=== PATIENT | female | born 1975 | race African-American/Black ===

== ENCOUNTER 2021-09-18 19:35 | Emergency (ER) | payer OTHER ==
[~2021-09-18] VITALS: Ht 160 cm; Wt 81.6 kg
[2021-09-18] MEDS ORDERED: PIPERACILLIN-TAZO 4.5GM 100 ML IV ONE (20:45)
[2021-09-18] MEDS ORDERED: VANCOMYCIN 1GM/250ML 250 ML IV ONE (20:45)
[2021-09-18] MEDS ORDERED: MEROPENEM 1GM IVPB 100 ML IV ONE (20:45)
[2021-09-18] MEDS ORDERED: VANCOMYCIN 500 MG in D5W 5% 100 ML IV ONE (20:45)
[2021-09-18 21:41] LABS: Basophils # (auto) 0 10 ^3/uL (0-0.2); Basophils % (auto) 0.7 % (0.0-2.0); Eosinophils # (auto) 0 10 ^3/uL (0-0.8); Eosinophils % (auto) 0.8 % (0.0-7.0); Hematocrit 35.3 % (36.0-46.0); Lymphocytes # (auto) 1.2 10 ^3/uL (0.4-5.4); Lymphocytes % (auto) 22.7 % (10.0-50.0); Mean Corpuscular Hemoglobin 31.1 pg (28.0-32.0); Mean Corpuscular Hgb Conc. 33.9 g/dL (32.0-36.0); Mean Corpuscular Volume 91.6 fL (80.0-100.0); Monocytes # (auto) 0.6 10 ^3/uL (0-1.3); Monocytes % (auto) 11.2 % (0.0-12.0); Neutrophils # (auto) 3.3 10 ^3/uL (1.6-8.6); Neutrophils % (auto) 64.6 % (37.0-80.0); Nucleated Red Blood Cells % 0.1 %; Red Blood Cells 3.85 10^6/uL (4.0-5.20); Red Cell Distribution Width 13.7 % (11.8-14.3); White Blood Cell 5.1 10^3/uL (4.4-10.8)
[2021-09-18 22:10] LABS: BUN/Creatinine Ratio 14.6; Calcium 8.5 mg/dL (8.5-10.1); Potassium 3.7 mmol/L (3.5-5.1)
[2021-09-18 22:19] LABS: INR 1.05 (0.9-1.15)
[2021-09-18] MEDS ORDERED: KETOROLAC TROMETH 30 MG/ML 1ML VIAL IV ONE (23:30)
[2021-09-19 02:19] VITALS: BP 121/66
== END 2021-09-19 02:55 | disposition short-term general hospital (02) ==
LOC: EDBD 19:35 → ER 19:41
DX: M00.9 Pyogenic arthritis, unspecified (principal); N93.9 Abnormal uterine and vaginal bleeding, unspecified; R10.9 Unspecified abdominal pain; Z96.651 Presence of right artificial knee joint; Z88.6 Allergy status to analgesic agent; Z88.8 Allergy status to other drugs, medicaments and biological substances
CPT/HCPCS: 36415; 80048; 83605; 85025; 85610; 85652; 85730; 87040; 96365; 96366; 96368; 96375; 99285; J1885; J2185; J2543; J3370; J7060